=== PATIENT | female | born 1995 | race Caucasian/White ===

== ENCOUNTER 2018-02-10 14:38 | Inpatient (IN) ==
[2018-02-10] MEDS ORDERED: FAMOTIDINE 20 MG/2 ML VIAL IV ONE (14:57)
[2018-02-10] MEDS ORDERED: CITRIC ACID/SODIUM CITRATE 30 ML UDCUP PO ONE (14:57)
[2018-02-10] MEDS ORDERED: ceFAZolin 2,000 MG in PREMIX 1 EACH IV ONE (14:57)
[2018-02-10] MEDS ORDERED: OXYTOCIN 10 UNIT/ML VIAL IM ONE (15:00)
[2018-02-10] MEDS ORDERED: LACTATED RINGERS 1,000 ML IV SCH (15:00)
[2018-02-10] MEDS ORDERED: OXYTOCIN/LR 30 UNIT/1,000 ML BAG IV ONE (15:00)
[2018-02-10] MEDS ORDERED: diphenhydrAMINE 50 MG/1 ML VIAL IV PRN (15:12)
[2018-02-10] MEDS ORDERED: LACTATED RINGERS 1,000 ML IV ONE (15:12)
[2018-02-10] MEDS ORDERED: ONDANSETRON 4 MG/2 ML VIAL IV ONE (15:12)
[2018-02-10] MEDS ORDERED: PROMETHAZINE 25 MG/1 ML VIAL IM PRN (15:12)
[2018-02-10 15:28] LABS: Basophils % 0.2 % (0.0-0.8); Eosinophils % 0.5 % (0.00-10.9); Hematocrit 27.1 VOL% (35.7-47.0); Hemoglobin 7.7 GM/DL (12.0-16.0); Immature Granulocytes % 0.9 %; Immature Granulocytes Absolute 0.07 #; Lymphocytes # 2.1 10*3/uL (1.4-4.0); Mean Corpuscular HGB Conc 28.4 GM/DL (32-36); Mean Corpuscular Hemoglobin 23 PG (27-34); Mean Corpuscular Volume 79.5 FL (87-102); Mean Platelet Volume 10.7 FL (9.6-12.0); Monocytes # 0.5 10*3/uL (0.11-0.8); Monocytes % 6.5 % (1.7-12.7); Neutrophils # 5.3 10*3/uL (1.4-7.4); Neutrophils % 65.9 % (38.7-73.9); Platelet Count 148 T/CUMM (130-400); Red Blood Count 3.41 MC/CUMM (3.8-5.5); Red Cell Distribution Width 16.9 % (9.3-17.3); White Blood Count 8.1 T/CUMM (4-12)
[2018-02-10] MEDS ORDERED: SODIUM CHLORIDE 0.9% 1,000 ML IV PRN ×2 (16:37→17:15)
[2018-02-10] MEDS ORDERED: PHENYLEPHRINE 1 MG/10 ML SYRINGE IV ONE (17:06)
[2018-02-10] MEDS ORDERED: fentaNYL 100 MCG/2 ML VIAL ONE (17:07)
[2018-02-10] MEDS ORDERED: MIDAZOLAM 2 MG/2 ML VIAL ONE (17:07)
[2018-02-10] MEDS ORDERED: BUPIVACAINE SPINAL 0.75% 2 ML AMP SPINAL ONE (17:08)
[2018-02-10] MEDS ORDERED: MORPHINE 10 MG/10 ML VIAL ONE (17:08)
[2018-02-10 17:54] LABS: Apearance,Urine Slightly Hazy (Clear); Bacteria,Urine Occasional /HPF (Few); Bilirubin,Urine Negative (Negative); Blood, Urine Moderate mg/dL (Negative); Glucose,Urine (UA) Negative (Negative); Ketones,Urine 20 mg/dL (Negative); Mucus,Urine Occasional /LPF (Occasional); Nitrite,Urine Negative (Negative); Protein,Urine 100 MG/DL; RBC,Urine 100 /HPF (0-4); Squamous Epithelial Cell,Urine Occasional /HPF (0-10); Urine Color Yellow (Yellow); Urine Urobilinogen < 2.0 EU/DL (0.2-1.0); WBC,Urine 2 /HPF (0-6)
[2018-02-10] MEDS ORDERED: OXYTOCIN/LR 20 UNIT/1,000 ML BAG IV ONE ×2 (19:08→19:11)
[2018-02-10] MEDS: hydrOXYzine HCL 25 MG/1 ML VIAL IM PRN (22:56)
[2018-02-10] MEDS ORDERED: MEPERIDINE 25 MG/1 ML VIAL IV PRN (22:59)
[2018-02-10] MEDS ORDERED: ONDANSETRON 4 MG/2 ML VIAL IV PRN (22:59)
[2018-02-11 00:19] LABS: Basophils % 0.4 % (0.0-0.8); Eosinophils % 0.2 % (0.00-10.9); Hematocrit 30.2 VOL% (35.7-47.0); Hemoglobin 9.3 GM/DL (12.0-16.0); Immature Granulocytes % 0.7 %; Immature Granulocytes Absolute 0.08 #; Lymphocytes % 18.2 % (21.3-54.2); Mean Corpuscular HGB Conc 30.8 GM/DL (32-36); Mean Corpuscular Hemoglobin 24 PG (27-34); Mean Platelet Volume 10.5 FL (9.6-12.0); Monocytes # 0.7 10*3/uL (0.11-0.8); Monocytes % 6.7 % (1.7-12.7); NRBC # 0.02 10*3/uL; Neutrophils # 7.9 10*3/uL (1.4-7.4); Neutrophils % 73.8 % (38.7-73.9); Platelet Count 106 T/CUMM (130-400); Red Blood Count 3.87 MC/CUMM (3.8-5.5); Red Cell Distribution Width 16.6 % (9.3-17.3); White Blood Count 10.7 T/CUMM (4-12)
[2018-02-11] MEDS: ceFAZolin 1,000 MG in SYRINGE 1 EACH IV SCH ×2 (01:03→08:00)
[2018-02-11] MEDS ORDERED: BISACODYL 10 MG SUPP RECTAL PRN (02:55)
[2018-02-11] MEDS: hydrOXYzine HCL 25 MG/1 ML VIAL IM PRN (04:33)
[2018-02-11] MEDS: WITCH HAZEL PADS 100/JAR TOP PRN (04:33)
[2018-02-11] MEDS: HYDROCORTISONE 2.5% RECTAL CREAM 30 GM TUBE TOP PRN (04:33)
[2018-02-11] MEDS: METOCLOPRAMIDE 10 MG/2 ML VIAL IV SCH ×2 (07:59→15:47)
[2018-02-11 08:27] LABS: Basophils % 0.3 % (0.0-0.8); Eosinophils # 0.1 10*3/uL (0.0-0.87); Eosinophils % 0.6 % (0.00-10.9); Hematocrit 32.3 VOL% (35.7-47.0); Hemoglobin 9.8 GM/DL (12.0-16.0); Immature Granulocytes % 0.6 %; Immature Granulocytes Absolute 0.06 #; Lymphocytes # 2.1 10*3/uL (1.4-4.0); Lymphocytes % 20.2 % (21.3-54.2); Mean Corpuscular HGB Conc 30.3 GM/DL (32-36); Mean Corpuscular Hemoglobin 24 PG (27-34); Mean Corpuscular Volume 77.6 FL (87-102); Mean Platelet Volume 11.2 FL (9.6-12.0); Monocytes # 0.7 10*3/uL (0.11-0.8); Monocytes % 6.4 % (1.7-12.7); Neutrophils # 7.4 10*3/uL (1.4-7.4); Neutrophils % 71.9 % (38.7-73.9); Platelet Count 109 T/CUMM (130-400); Red Blood Count 4.16 MC/CUMM (3.8-5.5); Red Cell Distribution Width 16.7 % (9.3-17.3); White Blood Count 10.3 T/CUMM (4-12)
[2018-02-11] MEDS: MULTIVITAMIN (PRENATAL) TABLET PO SCH (09:26)
[2018-02-11] MEDS: DOCUSATE SODIUM 100 MG CAPSULE PO SCH ×2 (09:26→21:40)
[2018-02-11] MEDS: FERROUS SULFATE 325 MG TABLET PO SCH ×2 (09:26→21:40)
[2018-02-11] MEDS: MAGNESIUM HYDROXIDE SUSP 30 ML UDCUP PO SCH ×2 (15:47→23:34)
[2018-02-11] MEDS: IBUPROFEN 800 MG TABLET PO PRN (21:40)
[2018-02-11] MEDS: SIMETHICONE CHEW 80 MG TABLET PO SCH (21:44)
[2018-02-11] MEDS: METOCLOPRAMIDE 10 MG TABLET PO SCH (23:35)
[2018-02-12] MEDS: METOCLOPRAMIDE 10 MG TABLET PO SCH ×2 (08:43→15:39)
[2018-02-12] MEDS: MULTIVITAMIN (PRENATAL) TABLET PO SCH (08:43)
[2018-02-12] MEDS: MAGNESIUM HYDROXIDE SUSP 30 ML UDCUP PO SCH ×2 (08:43→21:32)
[2018-02-12] MEDS: FERROUS SULFATE 325 MG TABLET PO SCH ×2 (08:43→21:33)
[2018-02-12] MEDS: DOCUSATE SODIUM 100 MG CAPSULE PO SCH ×2 (08:44→21:33)
[2018-02-12] MEDS ORDERED: BENZOCAINE 20%/MENTHOL 0.5% SPRAY 56 GM CAN TOP PRN (20:09)
[2018-02-12] MEDS: IBUPROFEN 800 MG TABLET PO PRN (21:32)
[2018-02-12] MEDS: HYDROCORTISONE 2.5% RECTAL CREAM 30 GM TUBE TOP PRN (21:32)
[2018-02-12] MEDS: WITCH HAZEL PADS 100/JAR TOP PRN (21:33)
[2018-02-12] MEDS: SIMETHICONE CHEW 80 MG TABLET PO SCH (21:33)
[2018-02-13] MEDS: METOCLOPRAMIDE 10 MG TABLET PO SCH ×2 (01:14→08:23)
[2018-02-13 07:55] VITALS: BP 104/74
[2018-02-13] MEDS: DOCUSATE SODIUM 100 MG CAPSULE PO SCH (08:18)
[2018-02-13] MEDS: MULTIVITAMIN (PRENATAL) TABLET PO SCH (08:18)
[2018-02-13] MEDS: MAGNESIUM HYDROXIDE SUSP 30 ML UDCUP PO SCH (08:18)
[2018-02-13] MEDS: FERROUS SULFATE 325 MG TABLET PO SCH (08:18)
[2018-02-13 13:04] LABS: Hepatitis B Surface Ag Quant 0.12 Index; Hepatitis B Surface Ag Result Negative (Negative)
== END 2018-02-13 15:15 | disposition home or self-care (01) | DRG 788 ==
LOC: N.LDOUT 14:38 → N.LD 14:41 → N.OB 21:00
PROVIDERS: ADMIT Obstetrics & Gynecology; ATTEND Obstetrics & Gynecology
PROC: LDCSECT (ICD-10-PCS; 2018-02-10 15:55)